=== PATIENT | female | born 1995 | race Two or more races ===

== ENCOUNTER 2020-02-07 10:29 | Emergency (ER) | payer OTHER ==
[~2020-02-07] VITALS: Ht 157.5 cm; Wt 72.7 kg
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
[2020-02-07 11:16] LABS: BILIRUBIN,URINE NEGATIVE (NEG); CLARITY,URINE CLOUDY; COLOR,URINE AMBER; NITRITE,URINE NEGATIVE (NEG); PROTEIN,URINE 30 mg/dL (NEG-TRACE); UROBILINOGEN,URINE 0.2 mg/dL (0.2 mg/dL)
[2020-02-07 11:27] LABS: AMORPHOUS SEDIMENT,UR PRESENT /HPF; BACTERIA,URINE MODERATE /HPF (0-FEW); RBC,URINE 0 /HPF (0-2); SQUAMOUS EPITHELIAL CELL,UR MANY /LPF; WBC,URINE 20-40 /HPF (0-4)
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
[2020-02-07] MEDS ORDERED: CEPH-264 PO (11:54)
[2020-02-07] MEDS ORDERED: NAPR-514 PO (11:54)
[2020-02-07 12:35] VITALS: BP 123/75
== END 2020-02-07 12:30 | disposition home or self-care (01) ==
LOC: ER 10:29
DX: S40.212A Abrasion of left shoulder, initial encounter (principal); S70.211A Abrasion, right hip, initial encounter; N39.0 Urinary tract infection, site not specified; M79.651 Pain in right thigh; V98.8XXA Other specified transport accidents, initial encounter; Y93.89 Activity, other specified; Y92.488 Other paved roadways as the place of occurrence of the external cause; Y99.8 Other external cause status
CPT/HCPCS: 73502; 81001; 81025; 87086; 99284

== ENCOUNTER 2020-02-10 10:24 | Emergency (ER) | payer SELFPAY ==
[~2020-02-10] VITALS: Ht 157.5 cm; Wt 75.0 kg
[~2020-02-10 10:24] MED LIST: CEPH-264 PO; NAPR-514 PO
[2020-02-10 10:31] VITALS: BP 124/69
[2020-02-10] MEDS ORDERED: diphenhydrAMINE HCL 25 MG CAPSULE PO ONE (11:15)
[2020-02-10] MEDS ORDERED: FAMOTIDINE 20 MG TABLET. PO ONE (11:15)
[2020-02-10] MEDS ORDERED: DEXAMETHASONE SOD PHOS 4 MG/ML VIAL IM ONE (11:15)
[2020-02-10] MEDS ORDERED: DIPH25CA58 PO (11:29)
[2020-02-10] MEDS ORDERED: NITR100C62 PO (11:29)
[2020-02-10] MEDS ORDERED: METH4TAB2 PO (11:29)
[2020-02-10] MEDS ORDERED: FAMO-63 PO (11:29)
--- NOTE | 2020-02-10 11:30 | PHYS DOC ---
Past Medical History Past Medical History: No Pertinent History Past Surgical History: No Surgical History Smoking Status: Never Smoker Alcohol Use: Occasionally Drug Use: None General Adult EDM: Chief Complaint: ALLERGIC REACTION HPI: HPI: Patient is a 24 year old female who presents with diffuse rash. Patient started Keflex 3 days ago for a UTI. She states that yesterday she noticed some small bumps on her bilateral forearms. She took some Benadryl yesterday and went to bed. When she woke up this morning she had a diffuse itchy rash all over her body. She denies any nausea, vomiting, shortness of breath, swelling. She has never had an allergic reaction previously. She has not tried anything for the rash today. Review of Systems: Review of Systems: General: Denies fever, chills, sweats, fatigue Eyes: Denies drainage, blurred vision HENT: Denies rhinorrhea, sore throat Respiratory: Denies cough, shortness of breath, wheezing Cardiac: Denies edema, palpitations, chest pain GI: Denies abdominal pain, N/V MSK: Denies back pain, neck pain Skin: Denies jaundice reports hives Neuro: Denies headache, dizziness Psychiatric: Denies SI/HI Heart Score: Risk Factors: Risk Factors: DM, Current or recent (<one month) smoker, HTN, HLP, family history of CAD, obesity. Risk Scores: Score 0 - 3: 2.5% MACE over next 6 weeks - Discharge Home Score 4 - 6: 20.3% MACE over next 6 weeks - Admit for Clinical Observation Score 7 - 10: 72.7% MACE over next 6 weeks - Early Invasive Strategies Current Medications: Current Medications Medications (Trade) Dose Ordered Sig/Jarrett Start Time Stop Time Status Last Admin Dose Admin Dexamethasone Sodium Phosphate (Decadron) 10 mg 1X ONCE 02/10/20 11:15 02/10/20 11:16 DC Diphenhydramine HCl (Benadryl) 25 mg 1X ONCE 02/10/20 11:15 02/10/20 11:16 DC Famotidine (Pepcid) 20 mg 1X ONCE 02/10/20 11:15 02/10/20 11:16 DC Allergies: Allergies: Allergies Coded Allergies Type Severity Reaction Last Updated Verified cephalexin Allergy Intermediate hives, itching 02/10/20 Yes Physical Exam: PE: Constitutional: Well developed, well nourished, Cooperative, NAD, non-toxic appearing HEENT: Normocephalic, atraumatic, oropharynx moist, EOMI, PERRL, no drainage from eyes, normal conjunctiva Neck: Supple, normal range of motion, no stridor Cardiovascular: RRR, 2+ radial pulses bilaterally, no edema Respiratory: CTA bilaterally, no respiratory distress, no wheezing/crackles Abdomen: Soft, nontender, nondistended, no masses Skin: Warm, dry, intact, diffuse hives covering bilateral arms, legs, chest, abdomen, back Extremities: No obvious deformities Neurologic: Alert and Oriented x3, motor and sensory function grossly normal, no focal deficits Psychologic: Normal affect, normal judgment, normal mood. No SI/HI Current Patient Data: Vital Signs: Vital Signs Date Time Temp Pulse Resp B/P (MAP) Pulse Ox O2 Delivery O2 Flow Rate FiO2 02/10/20 10:31 99.0 96 18 124/69 (87) 98 Room Air 99.0 EKG: EKG: [] Radiology/Procedures: Radiology/Procedures: [] Course & Med Decision Making: Course & Med Decision Making Pertinent Labs and Imaging studies reviewed. (See chart for details) Patient is a 24-year-old female who presents the emergency room with hives. It appears at this time that she is likely allergic to Keflex. We will stop her Keflex and start her on Macrobid for her UTI. Patient does not have any airway compromise or worse more than 1 symptom that would be concerning for anaphylaxis. She will be started on steroids, Benadryl, Pepcid. I have discussed with her that she should not be working if she is taking high-dose Benadryl and will give her the next 3 days off of work for this. We have discussed signs and symptoms of anaphylaxis and airway compromise. Patient's test results and vitals while in the ED were fully reviewed and discussed with the patient. Patient is stable and at this time does not need admission to the hospital. We have discussed strict return precautions and the importance of following up with their Primary Care Physician. Patient stated understanding and was given an opportunity to ask any questions. Dragon Disclaimer: Dragon Disclaimer: This electronic medical record was generated, in whole or in part, using a voice recognition dictation system. Departure Departure Impression: Primary Impression: Allergic drug reaction Disposition: HOME, SELF-CARE Condition: STABLE Referrals: NO PCP (PCP) Patient Instructions: Hives Additional Instructions: Take Benadryl 50mg every 8 hours for 3 days Take Pepcid 20mg twice a day for 3 days Take Medrol dose pack at prescribed Take Macrobid twice a day for UTI Scripts Methylprednisolone (MEDROL) 4 Mg Tab.ds.pk 1 PKG PO UD, #1 PKG Prov: CATHY LUGO MD 02/10/20 Famotidine (PEPCID) 20 Mg Tablet 20 MG PO BID for 3 Days, #6 TAB Prov: CATHY LUGO MD 02/10/20 Diphenhydramine Hcl (BENADRYL) 25 Mg Capsule 2 CAP PO Q8HRS for 3 Days, #18 CAP 0 Refills Prov: CATHY LUGO MD 02/10/20 Nitrofurantoin Monohyd/M-Cryst (MACROBID 100 MG CAPSULE) 100 Mg Capsule 1 CAP PO BID for 5 Days, #10 CAP 0 Refills Prov: CATHY LUGO MD 02/10/20 Justicifation of Admission Dx: Justifications for Admission: Justification of Admission Dx: No CATHY LUGO MD Feb 10, 2020 11:30
== END 2020-02-10 11:50 | disposition home or self-care (01) ==
LOC: ER 10:24
DX: L50.0 Allergic urticaria (principal); T36.1X5A Adverse effect of cephalosporins and other beta-lactam antibiotics, initial encounter; Z88.1 Allergy status to other antibiotic agents; Y92.89 Other specified places as the place of occurrence of the external cause
CPT/HCPCS: 96372; 99283; J1100; Q0163

== ENCOUNTER 2020-06-08 15:53 | Emergency (ER) | payer SELFPAY ==
[~2020-06-08] VITALS: Ht 160 cm; Wt 70.0 kg
[~2020-06-08 15:53] MED LIST changes: +DIPH25CA58 PO; +FAMO-63 PO; +METH4TAB2 PO; +NITR100C62 PO
[2020-06-08] MEDS ORDERED: HYDROcodone/APAP 5/325MG 1 TAB TABLET PO ONE (16:45)
--- NOTE | 2020-06-08 17:19 | RAD ---
LEFT HAND, VIEWS 3 Indication: Reason: bit by dog, laceration, tenderness, swelling / Findings: There is no acute fracture or dislocation. Bony articulations are normal. There is no bony erosion. Mineralization is normal. There is no radiographically apparent soft tissue swelling or radiopaque foreign body. IMPRESSION: No acute fracture. Electronically signed by: Braulio Avalos MD (06/08/2020 5:16 PM) [id number]
--- NOTE | 2020-06-08 17:26 | ED.ADGEN ---
Past Medical History Past Medical History: No Pertinent History Past Surgical History: No Surgical History Smoking Status: Never Smoker Alcohol Use: Occasionally Drug Use: None General Adult EDM: Chief Complaint: ANIMAL BITE HPI: HPI: Patient is a 24 year old female who presents emergency department with reports of a dog bite to her right hand. Patient states she was walking her dog when a unknown dog approached him and attacked her. Patient is unsure when her last tetanus shot was. She denies any decreased sensation, or movement of her right hand or fingers. She denies any numbness, tingling, or altered sensation of her right hand. Patient states that animal control was contacted by nursing staff on arrival. She currently rates pain a 10 out of 10 on the pain scale, she denies any alleviating factors, the pain increases with palpation and movement, she denies any alleviating factors. Review of Systems: Review of Systems: Complete ROS is negative unless otherwise noted in HPI. Current Medications: Current Medications Medications (Trade) Dose Ordered Sig/Jarrett Start Time Stop Time Status Last Admin Dose Admin Acetaminophen/ Hydrocodone Bitart (Lortab 5/325) 1 tab 1X ONCE 06/08/20 16:45 06/08/20 16:46 DC 06/08/20 16:40 1 TAB Diphtheria/ Tetanus/Acell Pertussis (ADACEL TDap SYRINGE) 0.5 ml ONCE ONCE 06/08/20 17:45 06/08/20 17:46 DC 06/08/20 17:53 0.5 ML Lidocaine HCl (Xylocaine-Mpf 1% 2ml Vial) 4 ml 1X ONCE 06/08/20 17:30 06/08/20 17:31 DC 06/08/20 17:51 4 ML Allergies: Allergies: Allergies Coded Allergies Type Severity Reaction Last Updated Verified cephalexin Allergy Intermediate hives, itching 02/10/20 Yes Physical Exam: PE: See Above Constitutional: Well developed, well nourished, no acute distress, non-toxic appearance. [] HENT: Normocephalic, atraumatic, bilateral external ears normal, nose normal. [] Eyes: PERRLA, EOMI, conjunctiva normal, no discharge. [] Neck: Normal range of motion, no stridor. [] Cardiovascular:Heart rate regular rhythm Lungs & Thorax: Respirations even and unlabored, no retractions, no respiratory distress Skin: Warm, dry, no erythema; 3.5 cm laceration noted to palmar surface of right hand, no visible foreign body, 2 puncture wounds noted to the right thumb, no active bleeding, no visible foreign body Extremities: Right hand: Full extension and flexion of all digits and wrist, no cyanosis, ROM intact, edema noted to right palm at laceration site Neurologic: Alert and oriented X 3, no focal deficits noted. [] Psychologic: Affect normal, judgement normal, mood normal. [] Current Patient Data: Vital Signs: Vital Signs Date Time Temp Pulse Resp B/P (MAP) Pulse Ox O2 Delivery O2 Flow Rate FiO2 06/08/20 19:45 63 16 120/60 (80) 99 Room Air 06/08/20 16:23 98.8 98.8 EKG: EKG: [] Heart Score: Risk Factors: Risk Factors: DM, Current or recent (<one month) smoker, HTN, HLP, family history of CAD, obesity. Risk Scores: Score 0 - 3: 2.5% MACE over next 6 weeks - Discharge Home Score 4 - 6: 20.3% MACE over next 6 weeks - Admit for Clinical Observation Score 7 - 10: 72.7% MACE over next 6 weeks - Early Invasive Strategies Radiology/Procedures: Radiology/Procedures: PROCEDURE: HAND RIGHT 3V LEFT HAND, VIEWS 3 Indication: Reason: bit by dog, laceration, tenderness, swelling / Findings: There is no acute fracture or dislocation. Bony articulations are normal. There is no bony erosion. Mineralization is normal. There is no radiographically apparent soft tissue swelling or radiopaque foreign body. IMPRESSION: No acute fracture. Laceration Repair by me: Anesthesia: 1% lidocaine locally Location: , Aspect of right hand Tendon/Joint/Nerves: No injury Foreign body: None detected after copious irrigation and exploration with chlorhexidine and NS Technique: 6 Simple Interrupted Sutures with 4-0 Ethilon Complexity: No subcutaneous sutures/mucosal repair/edge excision Post Closure Length: 3.5 cm Patient's bleeding was easily controlled in the department and there is no i ndication of anemia. No evidence of compartment syndrome, neurologic injury, vascular injury, open joint, tendon laceration, or foreign body. Patient is appropriate for outpatient follow up. 48 hour wound check. [] Course & Med Decision Making: Course & Med Decision Making Pertinent Labs and Imaging studies reviewed. (See chart for details) I spoke with my field sales manager regarding case. Animal control notified and police shift commander reports to [facility] to obtain information. Pt reported to ACUTE CARE CLINICAL NURSE SPECIALIST that stray dog wasn't acting bizarre or weird, was not foaming at the mouth or with oral secretions. Because pt was well groomed, wasn't dirty and acting appropriately, pt believes this was a loose dog that "just got out" and she only got bit because she was trying to break up the fight between the stray dog and her dog. Because of these reasons, patient declined rabies treatment. After reviewing chart I called pt 3 times (have made multiple attempts to reach pt) and left a voicemail for pt at [phone] to return my call zach regarding her recent visit at [facility]. To discuss with pt that current recommendations are hwang pporting rabies prophylaxis from a bite or salivary exposure of bat or mammalian carnivore, if cannot capture dog or confirm rabies vaccination/observe animal [id number]. That there's almost a 100% fatality if dog should have rabies and pts' sxs would present months/much delayed (approximately 20-90days) after incident. I understand dog could very well be a domestic animal, but benefits of rabies prophylaxis outweighs risks of . I also reviewed [place] incidence of rabies in domestic dogs as of April 13, 2020 which resulted in 0 positive and 197 negative tests (0 unsuitable tests and 0 indeterminate tests). I spoke with animal chemistry quality control technician ([phone]) and currently there is report documented (there should be if dog is identified/found). Inspector [employer] explained that the animal cytologist is closed for the weekend and to call [phone] on Thursday. Gerard Disclaimer: Gerard Disclaimer: This electronic medical record was generated, in whole or in part, using a voice recognition dictation system. Departure Departure Impression: Primary Impression: Open wound of right hand due to dog bite Additional Impression: Need for Tdap vaccination Disposition: 01 DC HOME SELF CARE/HOMELESS Condition: STABLE Referrals: NO PCP (PCP) Patient Instructions: Animal Bite, [id number], Sutured Wound Care, [id number], VIS, Tetanus, Diphtheria (Td); Tetanus, Diphtheria, Pertussis (Tdap) - CDC Additional Instructions: Fill the prescription and use it as directed. Keep the area clean and dry. You may also take ibuprofen as needed for pain. Keep the dressing that was placed today on for 24 hours then change the dressing twice a day and apply antibiotic ointment to the area. Follow-up with your primary care doctor, or return to the emergency room in 10-14 days to have the sutures removed, sooner if you develop signs of infection including: redness, warmth, drainage, or a fever. [facility] [address] [place] [address] [facility] [address] [place] [address] [facility] [address] [place] [address] [facility] [address] [place] [address] [facility] [address] [place] [address] [address] [place] [address] [place] [address] [address] [place] [address] [place] [address] [facility] [address] [place] [address] [facility] [address] [place] [address] [facility] [address] [place] [address] Scripts Hydrocodone Bit/Acetaminophen (HYDROCODONE-APAP 5-325 ) 1 Tab Tablet 1 TAB PO PRN Q6HRS PRN for PAIN for 3 Days, #10 TAB 0 Refills Prov: MARILIN CAMACHO ACUTE CARE CLINICAL NURSE SPECIALIST 06/08/20 Doxycycline Hyclate (DOXYCYCLINE HYCLATE) 100 Mg Tablet 1 TAB PO BID, #14 TAB 0 Refills Prov: MARILIN CAMACHO ACUTE CARE CLINICAL NURSE SPECIALIST 06/08/20 Problem Qualifiers MARILIN CAMACHO ACUTE CARE CLINICAL NURSE SPECIALIST Jun 08, 2020 17:26 TARA CASTILLO DO Jun 09, 2020 16:40
[2020-06-08] MEDS ORDERED: LIDOCAINE 1% PF 2 ML VIAL. INJ ONE (17:30)
[2020-06-08] MEDS ORDERED: DIPH,PERTUSS(ACELL),TET VAC/PF 0.5 ML SYRINGE. VAX IM ONE (17:45)
[2020-06-08] MEDS ORDERED: DOXY100T PO (19:00)
[2020-06-08] MEDS ORDERED: HYDR-2761 PO (19:01)
[2020-06-08 19:45] VITALS: BP 120/60
== END 2020-06-08 19:46 | disposition home or self-care (01) ==
LOC: ER 15:53
DX: S61.411A Laceration without foreign body of right hand, initial encounter (principal); Z88.8 Allergy status to other drugs, medicaments and biological substances; W54.0XXA Bitten by dog, initial encounter; Y93.89 Activity, other specified; Y92.89 Other specified places as the place of occurrence of the external cause; Y99.8 Other external cause status
CPT/HCPCS: 12002; 73130; 90471; 90715; 99283; J3490